=== PATIENT | female | born 1955 | race Caucasian/White ===

== ENCOUNTER 2018-05-24 15:03 | Emergency (ER) | payer MEDICARE, OTHER ==
[~2018-05-24] VITALS: Ht 165.1 cm; Wt 86.2 kg
[2018-05-24 16:26] LABS: BASOPHILS ABSOLUTE AUTO 0.05 K/mm3 (0.00-0.23); BASOPHILS PERCENT AUTO 1 % (0-2); EOSINOPHILS ABSOLUTE AUTO 0.07 K/mm3 (0.00-0.68); EOSINOPHILS PERCENT AUTO 1 % (0-6); Hematocrit 23.9 % (33.0-51.0); Hemoglobin 7.9 g/dL (11.5-16.0); IMMATURE GRAN ABSOLUTE AUTO 0.11 K/mm3 (0.00-0.10); IMMATURE GRAN PERCENT AUTO 1 % (0-1); LYMPHOCYTES ABSOLUTE AUTO 1.82 K/mm3 (0.84-5.20); LYMPHOCYTES PERCENT AUTO 17 % (21-46); MONOCYTES ABSOLUTE AUTO 0.57 K/mm3 (0.16-1.47); MONOCYTES PERCENT AUTO 5 % (4-13); Mean Corpuscular HGB 30.2 pg (26.0-34.0); Mean Corpuscular HGB Conc 33.1 g/dL (31.5-36.5); Mean Corpuscular Volume 91 fL (80-100); Mean Platelet Volume 8.8 fL (9.1-12.4); NEUTROPHILS ABSOLUTE AUTO 8.29 K/mm3 (1.96-9.15); NEUTROPHILS PERCENT AUTO 76 % (41-73); Platelet Count 462 K/mm3 (150-400); RDW Coefficient Variation 14.8 % (11.7-14.2); RDW Standard Deviation 49.6 fL (35.1-46.3); Red Blood Cell Count 2.62 M/mm3 (3.80-5.20); White Blood Cell Count 10.91 K/mm3 (4.00-11.30)
[2018-05-24 16:44] LABS: Troponin I <0.015 ng/mL (0.000-0.040)
[2018-05-24 16:47] LABS: Alanine Aminotransfer (ALT/SGP 19 U/L (12-78); Albumin, Blood 2.1 g/dL (3.4-5.0); Albumin/Globulin Ratio 0.5 (0.8-1.8); Alk Phos 104 U/L (50-136); Anion Gap 19 mmol/L (6-16); Aspartate Aminotrans (AST/SGOT 15 U/L (12-37); Bilirubin, Total 0.4 mg/dL (0.1-1.0); Blood Urea Nitrogen 47 mg/dL (8-24); Bun/Creatinine Ratio 5.3 (12.0-20.0); CO2, Blood 19 mmol/L (21-32); Calcium, Blood 8.3 mg/dL (8.5-10.1); Chloride, Blood 88 mmol/L (98-108); Creatinine, Blood 8.85 mg/dL (0.40-1.00); Globulin, Blood 3.9 g/dL (2.2-4.0); Glomerular Filtration Rate 5 (60-); Glucose, Blood 276 mg/dL (70-99); Sodium, Blood 126 mmol/L (136-145)
[2018-05-24] MEDS ORDERED: Dazidox10 MG PO (17:18)
== END 2018-05-24 18:00 | disposition home or self-care (01) ==
LOC: ER 15:03
PROVIDERS: Internal Medicine
DX: N18.9 Chronic kidney disease, unspecified (principal); E11.22 Type 2 diabetes mellitus with diabetic chronic kidney disease; R52 Pain, unspecified; I25.10 Atherosclerotic heart disease of native coronary artery without angina pectoris; Z99.2 Dependence on renal dialysis
CPT/HCPCS: 36415; 71046; 80053; 83690; 84484; 85025; 93005; 93010; 96374; 99285-25; J3010

== ENCOUNTER 2018-06-15 09:11 | Inpatient (IN) | payer MEDICARE, OTHER ==
[~2018-06-15] VITALS: Ht 162.6 cm; Wt 90.0 kg
[~2018-06-15 09:11] MED LIST: Dazidox10 MG PO
[2018-06-15 09:20] LABS: Calcium, Ionized (POC) 0.81 mmol/L (1.10-1.46); Chloride (POC) 90 mmol/L (98-108); Glucose (ISTAT POC) 131 mg/dL (70-99); Hemoglobin (POC) 10.5 g/dL (12.0-16.0); Potassium (POC) 3.4 mmol/L (3.5-5.5); Sodium (POC) 126 mmol/L (135-148); Total CO2 (POC) 22 mmol/L (21-32)
[2018-06-15 09:40] LABS: BASOPHILS ABSOLUTE AUTO 0.09 K/mm3 (0.00-0.23); BASOPHILS PERCENT AUTO 1 % (0-2); EOSINOPHILS ABSOLUTE AUTO 0.12 K/mm3 (0.00-0.68); EOSINOPHILS PERCENT AUTO 1 % (0-6); Hematocrit 28.8 % (33.0-51.0); Hemoglobin 9.5 g/dL (11.5-16.0); IMMATURE GRAN ABSOLUTE AUTO 0.09 K/mm3 (0.00-0.10); IMMATURE GRAN PERCENT AUTO 1 % (0-1); LYMPHOCYTES ABSOLUTE AUTO 2.11 K/mm3 (0.84-5.20); LYMPHOCYTES PERCENT AUTO 17 % (21-46); MONOCYTES ABSOLUTE AUTO 0.56 K/mm3 (0.16-1.47); MONOCYTES PERCENT AUTO 5 % (4-13); Mean Corpuscular HGB 30.3 pg (26.0-34.0); Mean Corpuscular Volume 92 fL (80-100); Mean Platelet Volume 8.6 fL (9.1-12.4); NEUTROPHILS ABSOLUTE AUTO 9.26 K/mm3 (1.96-9.15); NEUTROPHILS PERCENT AUTO 76 % (41-73); Platelet Count 456 K/mm3 (150-400); RDW Coefficient Variation 14.9 % (11.7-14.2); RDW Standard Deviation 48.8 fL (35.1-46.3); Red Blood Cell Count 3.14 M/mm3 (3.80-5.20); White Blood Cell Count 12.23 K/mm3 (4.00-11.30)
[2018-06-15 10:05] LABS: Albumin, Blood 1.9 g/dL (3.4-5.0); Albumin/Globulin Ratio 0.5 (0.8-1.8); Bilirubin, Total 0.4 mg/dL (0.1-1.0); Bun/Creatinine Ratio 3.6 (12.0-20.0); Globulin, Blood 3.9 g/dL (2.2-4.0); Potassium, Blood 3.4 mmol/L (3.5-5.5); Total Protein, Blood 5.8 g/dL (6.4-8.2)
[2018-06-15 15:21] LABS: Source, Urine Clean Catch
[2018-06-15 15:33] LABS: Appearance, Urine Cloudy (Clear); Bilirubin, Urine Neg (Neg); Blood, Urine 3+ (Neg); Color, Urine Yellow (P-Yellow); Glucose Qualitative, Urine Neg (Neg); Ketones, Urine Neg (Neg); Leukocyte Esterase, Urine 3+ (Neg); Nitrite, Urine Neg (Neg); Protein, Urine 2+ (Neg); Specific Gravity, Urine 1.005 (1.003-1.022); Urobilinogen, Urine NORM (Normal)
[2018-06-15] MEDS ORDERED: OXYC5 PO (15:39)
[2018-06-15 15:50] LABS: White Blood Cells, Urine TNTC /hpf (0-5)
[2018-06-15 15:51] LABS: Bacteria Many /hpf; Squamous Epithelial Cells Few /hpf (Few)
[2018-06-15 16:08] LABS: Automated BF WBC Count 0.318 K/mm3 (0-999); Body Fluid WBC Count 318 /mm3 (0-999)
[2018-06-15] MEDS ORDERED: Humulin N100 UNIT/1 SC (16:37)
[2018-06-15] MEDS ORDERED: Humulin R500 UNIT/1 SC (16:38)
[2018-06-15] MEDS ORDERED: Synthroid125 MCG PO (16:40)
[2018-06-15 17:27] LABS: Color, Body Fluid No color (None-Yellow)
[2018-06-15 17:28] LABS: Appearance, Body Fluid Clear (Clear); Total Cell Count, Body Fluid 100
[2018-06-15] MEDS ORDERED: Aspir 8181 MG PO (17:34)
[2018-06-15] MEDS ORDERED: GABA600 PO (17:34)
[2018-06-15 18:17] LABS: RBC Count, Body Fluid 12 /mm3 (0-0)
[2018-06-15] MEDS ORDERED: TRAZ50 PO (22:48)
[2018-06-16 05:46] LABS: BASOPHILS ABSOLUTE AUTO 0.06 K/mm3 (0.00-0.23); BASOPHILS PERCENT AUTO 1 % (0-2); EOSINOPHILS PERCENT AUTO 1 % (0-6); Hematocrit 28.2 % (33.0-51.0); Hemoglobin 9.1 g/dL (11.5-16.0); IMMATURE GRAN ABSOLUTE AUTO 0.06 K/mm3 (0.00-0.10); IMMATURE GRAN PERCENT AUTO 1 % (0-1); LYMPHOCYTES ABSOLUTE AUTO 1.46 K/mm3 (0.84-5.20); LYMPHOCYTES PERCENT AUTO 19 % (21-46); MONOCYTES ABSOLUTE AUTO 0.35 K/mm3 (0.16-1.47); MONOCYTES PERCENT AUTO 5 % (4-13); Mean Corpuscular HGB 30.1 pg (26.0-34.0); Mean Corpuscular HGB Conc 32.3 g/dL (31.5-36.5); Mean Corpuscular Volume 93 fL (80-100); Mean Platelet Volume 8.7 fL (9.1-12.4); NEUTROPHILS ABSOLUTE AUTO 5.78 K/mm3 (1.96-9.15); NEUTROPHILS PERCENT AUTO 74 % (41-73); Platelet Count 395 K/mm3 (150-400); RDW Coefficient Variation 14.9 % (11.7-14.2); RDW Standard Deviation 49.2 fL (35.1-46.3); Red Blood Cell Count 3.02 M/mm3 (3.80-5.20); White Blood Cell Count 7.81 K/mm3 (4.00-11.30)
[2018-06-16 06:19] LABS: Magnesium, Blood 2.2 mg/dL (1.6-2.4)
[2018-06-16 06:25] LABS: Albumin, Blood 1.5 g/dL (3.4-5.0); Anion Gap 14 mmol/L (6-16); Blood Urea Nitrogen 33 mg/dL (8-24); Bun/Creatinine Ratio 3.7 (12.0-20.0); CO2, Blood 23 mmol/L (21-32); Calcium, Blood 7.3 mg/dL (8.5-10.1); Chloride, Blood 92 mmol/L (98-108); Creatinine, Blood 8.95 mg/dL (0.40-1.00); Glomerular Filtration Rate 5 (60-); Glucose, Blood 384 mg/dL (70-99); Phosphorus, Blood 7.3 mg/dL (2.5-4.9); Potassium, Blood 3.4 mmol/L (3.5-5.5); Sodium, Blood 129 mmol/L (136-145)
[2018-06-17 05:46] LABS: Albumin, Blood 1.4 g/dL (3.4-5.0); Anion Gap 14 mmol/L (6-16); Blood Urea Nitrogen 31 mg/dL (8-24); Bun/Creatinine Ratio 3.8 (12.0-20.0); CO2, Blood 24 mmol/L (21-32); Calcium, Blood 7.9 mg/dL (8.5-10.1); Chloride, Blood 95 mmol/L (98-108); Creatinine, Blood 8.22 mg/dL (0.40-1.00); Glomerular Filtration Rate 5 (60-); Glucose, Blood 142 mg/dL (70-99); Phosphorus, Blood 6.7 mg/dL (2.5-4.9); Potassium, Blood 3.1 mmol/L (3.5-5.5); Sodium, Blood 133 mmol/L (136-145)
[2018-06-18 05:33] LABS: Albumin, Blood 1.5 g/dL (3.4-5.0); Anion Gap 11 mmol/L (6-16); Blood Urea Nitrogen 27 mg/dL (8-24); Bun/Creatinine Ratio 3.7 (12.0-20.0); CO2, Blood 25 mmol/L (21-32); Calcium, Blood 7.5 mg/dL (8.5-10.1); Chloride, Blood 97 mmol/L (98-108); Creatinine, Blood 7.29 mg/dL (0.40-1.00); Glomerular Filtration Rate 6 (60-); Glucose, Blood 154 mg/dL (70-99); Magnesium, Blood 1.8 mg/dL (1.6-2.4); Phosphorus, Blood 5.1 mg/dL (2.5-4.9); Potassium, Blood 3.9 mmol/L (3.5-5.5); Sodium, Blood 133 mmol/L (136-145)
[2018-06-18] MEDS ORDERED: MIDO5 PO (10:46)
[2018-06-18] MEDS ORDERED: Aranesp40 MCG/0.4 SC (10:47)
[2018-06-18] MEDS ORDERED: POTCHL20ER PO (10:47)
[2018-06-18] MEDS ORDERED: VITAMIN D350000 UNIT PO (10:48)
[2018-06-18] MEDS ORDERED: CEPH500 PO (10:59)
== END 2018-06-18 13:52 | disposition home or self-care (01) | DRG 689 ==
LOC: ER 09:11 → MEDS 09:12 → EDPENDDIS 06-18 10:22 → ENPENDDIS 06-18 10:22 → MEDS 06-18 13:52
PROVIDERS: Emergency Medicine; Internal Medicine
PROC: 3E1M39Z Irrigation of Peritoneal Cavity using Dialysate, Percutaneous Approach (ICD-10-PCS; principal; 2018-06-17)
DX: N39.0 Urinary tract infection, site not specified (principal); G93.41 Metabolic encephalopathy; N18.6 End stage renal disease; I12.0 Hypertensive chronic kidney disease with stage 5 chronic kidney disease or end stage renal disease; E87.1 Hypo-osmolality and hyponatremia; E83.51 Hypocalcemia; B96.20 Unspecified Escherichia coli [E. coli] as the cause of diseases classified elsewhere; E11.22 Type 2 diabetes mellitus with diabetic chronic kidney disease; E11.65 Type 2 diabetes mellitus with hyperglycemia; Z99.2 Dependence on renal dialysis; Z79.4 Long term (current) use of insulin; I25.10 Atherosclerotic heart disease of native coronary artery without angina pectoris; E87.6 Hypokalemia; I95.89 Other hypotension; D63.1 Anemia in chronic kidney disease
CPT/HCPCS: 36415; 71045; 80047; 80048; 80053; 80069; 80202; 81001; 82306; 82330; 82947; 83735; 83970; 85014; 85025; 87070; 87077; 87086; 87186; 89051; 93005; 93010; 96365; 97116; 97161; 97530; 99285-25; G8978; G8979; G8980; J0610; J0692; J0696; J0881; J1644; J1815; J2405; J3370; J7030

== ENCOUNTER → 2018-07-27 | Outpatient (CLI) | payer MEDICARE, OTHER ==
[~2018-07-27] MED LIST changes: +Aranesp40 MCG/0.4 SC; +Aspir 8181 MG PO; +CEPH500 PO; +Cyclobenzaprine5 MG PO; +Fludrocortison0.1 MG PO; +GABA600 PO; +Humulin N100 UNIT/1 SC; +Humulin R500 UNIT/1 SC; +MIDO5 PO; +Macrobid 100 M100 MG PO; +OXYC10ER PO; +OXYC5 PO; +POTCHL20ER PO; +Roxicodone5 MG PO; +SEVEC800 PO; +Synthroid125 MCG PO; +TRAZ50 PO; +VANC125 PO; +VITAMIN D350000 UNIT PO
[2018-07-27 16:35] LABS: Automated BF WBC Count 0.074 K/mm3 (0-999); Body Fluid WBC Count 74 /mm3 (0-999)
[2018-07-27 16:43] LABS: RBC Count, Body Fluid 7 /mm3 (0-0)
[2018-07-27 16:44] LABS: Appearance, Body Fluid Clear (Clear); Color, Body Fluid L Yellow (None-Yellow)
[2018-07-27 17:25] LABS: Total Cell Count, Body Fluid 100
== END | disposition home or self-care (01) ==
LOC: LAB SHORT 12:25 → LAB 12:25
PROVIDERS: Internal Medicine
DX: N18.6 End stage renal disease (principal)
CPT/HCPCS: 89051

== ENCOUNTER → 2018-08-01 | Outpatient (CLI) | payer MEDICARE, OTHER ==
[2018-08-01 15:36] LABS: Free Thyroxine 1.9 ng/dL (0.70-1.60)
[2018-08-01 15:41] LABS: Thyroid Stimulating Hormone 1.35 uIU/mL (0.360-4.800)
== END ==
LOC: LAB 08:00 → LAB SHORT 08:00
PROVIDERS: Nurse Practitioner Family
DX: E03.9 Hypothyroidism, unspecified (principal)
CPT/HCPCS: 84439; 84443

== ENCOUNTER 2018-08-06 13:17 | Emergency (ER) | payer MEDICARE, OTHER ==
[~2018-08-06] VITALS: Ht 165.1 cm; Wt 77.1 kg
[~2018-08-06 13:17] MED LIST changes: -Cyclobenzaprine5 MG PO; -Macrobid 100 M100 MG PO; -Roxicodone5 MG PO
[2018-08-06 13:54] LABS: BASOPHILS ABSOLUTE AUTO 0.08 K/mm3 (0.00-0.23); BASOPHILS PERCENT AUTO 1 % (0-2); EOSINOPHILS ABSOLUTE AUTO 0.06 K/mm3 (0.00-0.68); EOSINOPHILS PERCENT AUTO 1 % (0-6); Hematocrit 36.4 % (33.0-51.0); Hemoglobin 11.1 g/dL (11.5-16.0); IMMATURE GRAN ABSOLUTE AUTO 0.03 K/mm3 (0.00-0.10); IMMATURE GRAN PERCENT AUTO 0 % (0-1); LYMPHOCYTES ABSOLUTE AUTO 2.51 K/mm3 (0.84-5.20); LYMPHOCYTES PERCENT AUTO 26 % (21-46); MONOCYTES ABSOLUTE AUTO 0.72 K/mm3 (0.16-1.47); MONOCYTES PERCENT AUTO 7 % (4-13); Mean Corpuscular HGB 29.1 pg (26.0-34.0); Mean Corpuscular HGB Conc 30.5 g/dL (31.5-36.5); Mean Corpuscular Volume 96 fL (80-100); Mean Platelet Volume 9.2 fL (9.1-12.4); NEUTROPHILS ABSOLUTE AUTO 6.39 K/mm3 (1.96-9.15); NEUTROPHILS PERCENT AUTO 65 % (41-73); Platelet Count 530 K/mm3 (150-400); RDW Standard Deviation 52.1 fL (35.1-46.3); Red Blood Cell Count 3.81 M/mm3 (3.80-5.20); White Blood Cell Count 9.79 K/mm3 (4.00-11.30)
[2018-08-06 14:25] LABS: Albumin, Blood 1.5 g/dL (3.4-5.0); Albumin/Globulin Ratio 0.3 (0.8-1.8); Bilirubin, Total 0.4 mg/dL (0.1-1.0); Bun/Creatinine Ratio 5.3 (12.0-20.0); Calcium, Blood 7.5 mg/dL (8.5-10.1); Creatinine, Blood 9.13 mg/dL (0.40-1.00); Globulin, Blood 4.4 g/dL (2.2-4.0); Potassium, Blood 3.7 mmol/L (3.5-5.5); Total Protein, Blood 5.9 g/dL (6.4-8.2)
[2018-08-06] MEDS ORDERED: Cyclobenzaprine5 MG PO (17:04)
[2018-08-06] MEDS ORDERED: Roxicodone5 MG PO (17:04)
[2018-08-06] MEDS ORDERED: Macrobid 100 M100 MG PO (17:06)
== END 2018-08-06 17:43 | disposition home or self-care (01) ==
LOC: ER 13:17
PROVIDERS: Internal Medicine
DX: R30.0 Dysuria (principal); E83.51 Hypocalcemia; M62.838 Other muscle spasm; M79.81 Nontraumatic hematoma of soft tissue; I25.2 Old myocardial infarction; E11.22 Type 2 diabetes mellitus with diabetic chronic kidney disease; N18.6 End stage renal disease; Z99.2 Dependence on renal dialysis; Z87.891 Personal history of nicotine dependence; Z79.899 Other long term (current) drug therapy; Z79.4 Long term (current) use of insulin; Z79.82 Long term (current) use of aspirin
CPT/HCPCS: 36415; 76882; 80053; 85025; 96374; 99284-25; J3010